=== PATIENT | male | born 1955 | race Caucasian/White ===

== ENCOUNTER 2022-09-05 06:09 | Inpatient (IN) ==
--- NOTE | 2022-09-05 06:36 | Emergency Department Note ---
Impression & Plan Acute non-ST segment elevation myocardial infarction, Chest pain, Hypertensive urgency ED Provider Note Provider: Joseluis Alves MD DATE OF SERVICE: 09/05/2022 CHIEF COMPLAINT: Chest pain/discomfort HISTORY OF PRESENT ILLNESS: Patient is a 67-year-old gentleman presenting here today with report of chest discomfort/indigestion symptoms that awoke him around 4:30 in the morning. States a little bit indigestion after having some pasta and a drinker or two last evening. This morning he woke at 430a with tightness/somewhat pressure sensation in the mid chest radiated to the back. Denies shortness of breath or nausea or other radiation of pain. States he had some indigestion in the past but this was slightly more intense. Did take a Xanax, Pepto-Bismol, Phazyme, and some Advil earlier with maybe some minimal transient improvement of symptoms but given persistence came here for vandana luation. Denies cardiac history personally but reports a significant family history of cardiac disease. Has been belching but denies any diarrhea, nausea, or vomiting. States he intermittently takes omeprazole. Denies recent URI symptoms. PAST MEDICAL HISTORY: As noted above and includes history of testicular and prostate cancer treated MEDICATIONS: Reviewed home medications includes a baby aspirin daily SOCIAL HISTORY: , occasional cigar, social alcohol, lives in the [facility] Family history: Father with early cardiac in his 40s PHYSICAL EXAM: GENERAL: alert and oriented in no acute distress on stretcher Head: normocephalic and atraumatic EYES: No injection, discharge or icterus. NECK: Trachea midline. ENT: Mucous membranes pink and moist. LUNGS: Airway patent. No retractions. Breath sounds clear with good air entry bilaterally. HEART: Regular rate and rhythm. No chest wall tenderness ABDOMEN: Soft and non-tender, without guarding or rebound. SKIN: Acyanotic, warm, dry, without rashes EXTREMITIES: Without swelling, tenderness or deformity NEUROLOGICAL: No focal deficits. No aphasia. No facial droop or slurred speech. Ambulatory. EK bpm normal sinus rhythm. No PVC or PAC. No acute ST segment elevation. QTc 444. CONTINUOUS CARDIAC MONITORING: was ordered and showed a heart rate of 70s-80s bpm in normal sinus rhythm Patient's laboratory studies and imaging reviewed. Differential includes Cardiac ischemia, aortic dissection, pulmonary embolism, pneumothorax, pneumonia, pericarditis, myocarditis, esophageal rupture, GERD, cholecystitis, pancreatitis, musculoskeletal, as well as other pathologies. IMPRESSION/MEDICAL DECISION MAKING: Patient reports some heartburn type symptoms overnight but a tightness in central chest pressure. Did take some medications prior to arrival transient improvement. Symptoms are a bit better at this time. No associated shortness of breath. States blood pressure normally well controlled. Been some years since he had cardiac testing due to a significant family history of cardiac disease. Denies a history of diabetes. Denies significant leg swelling. Does take a baby aspirin daily. EKG obtained here without acute STEMI. Chest x-ray obtained as well but doubt pulmonary pathology and is not hypoxic. Patient is noted to be hypertensive here. We will give Pepcid GI cocktail and full dose aspirin. Blood work ordered including troponin. Chest x-ray by her my review and radiology report shows no evidence of pneumonia, pulmonary edema, pneumothorax. Blood work with minimal anemia. No leukocytosis. No thrombocytopenia or thrombocytosis noted. Again I doubt an infectious etiology to his symptoms today such as sepsis. Severe electrolyte abnormality with creatinine of 1.2. No significant transaminitis of concern or evidence of pancreatitis based on labs. COVID-negative. High-sensitivity troponin returns elevated at 175 after calling the lab. Discussed with the patient and his son at bedside. Discussed further cardiac evaluation here and the patient's currently not experiencing chest discomfort. We will heparinize at this time given the elevation in his earlier symptoms. Advised the patient to alert us to any return of symptoms. Discussed with the hospitalist team for further care here and cardiac evaluation. Home blood pressure medicines were ordered. Repeat troponin noted to be increasing. Dr. Sparks from cardiology has seen the patient here in the emergency department. DIAGNOSIS: NSTEMI, Hypertension DISPOSITION: Hospitalist will evaluate Patient was agreeable with this plan. Critical Care I have personally spent 32 minutes of critical care time in the direct management of this patient. This includes bedside care, interpretation of diagnostic studies, and testing, discussion with consultants, patient, and family members, and other required patient management activities. These 32 minutes is in excess of all separately billable procedures. Past Med/Surg History Social History Smoking Status: Never smoker Second Hand Exposure: No; Hx Alcohol Use: Yes Alcohol type: hard liquor Hx Substance Use: No Preferred Language: Liberian Communication Ability: Effective Loader Malt House Required: No Beliefs That Will Affect Care: None Current Living Situation: Spouse Other Information That Helps Us Care for You: No Feels Safe at Home: Yes Safety Concerns: Feels Safe At This Time Assistive Devices: Glasses Allergies Allergies Allergy/AdvReac Type Severity Reaction Status Date / Time No Known Allergies Allergy Unverified 09/05/22 13:02 Home Meds Home Medications Medication Instructions Recorded Confirmed alprazolam 1 mg tablet (Xanax) 0.5 mg PO BID Anxiety 09/05/22 09/05/22 bupropion HCl 150 mg tablet,12 hr 150 mg PO BID 09/05/22 09/05/22 sustained-release hydrochlorothiazide 25 mg tablet 25 mg PO DAILY 09/05/22 09/05/22 lisinopril 20 mg tablet 20 mg BID 09/05/22 09/05/22 pravastatin 80 mg tablet 80 mg PO HS 09/05/22 09/05/22 verapamil 360 mg 24 hr 360 mg PO DAILY 09/05/22 09/05/22 capsule,extended release Results & Data (ED) Vital Signs Vital Signs - 24 hr 09/05/22 06:12 09/05/22 06:41 09/05/22 08:38 Temperature 36.8 C Temperature Source Temporal Artery Scan Pulse Rate 77 Pulse Rate [Apical] 75 72 Respiratory Rate 18 20 18 Respiratory Effort / Characteristics Non-Labored Spontaneous Non-Labored Spontaneous Respiratory Depth Normal Normal Normal Respiratory Pattern Regular Blood Pressure 177/112 H Blood Pressure [Right Arm] 171/115 H 178/118 H Blood Pressure Mean 133 Blood Pressure Mean [Right Arm] 133 138 Blood Pressure Position Sitting Pulse Oximetry 99 98 98 Oxygen Delivery Method Room Air Room Air Room Air Sepsis Recent Fever Within 48 Hours No Sepsis New/Unexplained Change in Mental Status N/A Sepsis Action Taken by Nursing No Action Required Laboratory Data 09/05/22 06:34 09/05/22 06:34 Lab Results 09/05/22 09/05/22 09/05/22 Range/Units 06:34 06:34 06:34 WBC 5.80 (4.8-10.8) K/ul RBC 4.68 L (4.70-6.10) M/uL Hgb 13.3 L (14.0-18.0) g/dl Hct 40.8 L (42.0-52.0) % MCV 87.2 (80.0-100.0) fL MCH 28.4 (25.0-34.0) pg MCHC 32.6 (32.0-36.0) g/dL RDW Std Deviation 43.0 (36.4-46.3) fL RDW Coeff of Cheryl 13.5 (11.5-14.5) % Plt Count 251 (130-400) K/uL MPV 9.8 (9.4-12.4) fL Immature Gran % (Auto) 0.9 % Neut % (Auto) 60.8 % Lymph % (Auto) 26.0 % [place] % (Auto) 9.8 % Eos % (Auto) 2.2 % Baso % (Auto) 0.3 % Neut # (Auto) 3.52 (1.40-6.50) K/uL Lymph # (Auto) 1.51 (1.2-3.4) K/uL [place] # (Auto) 0.57 (0.11-0.59) K/uL Eos # (Auto) 0.13 (0-0.50) K/uL Baso # (Auto) 0.02 (0-0.2) K/uL Immature Gran # (Auto) 0.05 (0.01-0.20) K/uL Sodium 139 (136-145) mmol/L Potassium 3.6 (3.5-5.1) mmol/L Chloride 103 (98-107) mmol/L Carbon Dioxide 26 (21-32) mmol/L Anion Gap 10 (3-11) BUN 27 H (6-23) mg/dl Creatinine 1.22 (0.6-1.4) mg/dl Est Cr Clr Drug Dosing 66.3 ml/min Est GFR ( Amer) 71.7 ml/min Est GFR (Non-Af Amer) 61.8 ml/min BUN/Creatinine Ratio 22.1 H (10-20) Glucose 117 H (70-99(Fasting)) mg/dl Calcium 9.7 (8.5-10.1) mg/dl Total Bilirubin 0.3 (0.2-1.0) mg/dl AST 26 (13-39) U/L ALT 34 (7-52) U/L Alkaline Phosphatase 105 H (34-104) U/L Troponin I High Sens 175.2 H* Cancelled (0-20) pg/ml Total Protein 7.6 (6.0-8.3) gm/dl Albumin 4.3 (3.4-5.0) gm/dl Globulin 3.3 (2.5-4.0) gm/dl Albumin/Globulin Ratio 1.3 (0.9-2) Lipase 18 (11-82) U/L Vitamin B12 (180-914) pg/ml Folate (>5.38) ng/ml SARS-CoV-2, RNA, NAAT (NEGATIVE) 09/05/22 09/05/22 09/05/22 Range/Units 06:34 06:34 08:39 WBC (4.8-10.8) K/ul RBC (4.70-6.10) M/uL Hgb (14.0-18.0) g/dl Hct (42.0-52.0) % MCV (80.0-100.0) fL MCH (25.0-34.0) pg MCHC (32.0-36.0) g/dL RDW Std Deviation (36.4-46.3) fL RDW Coeff of Cheryl (11.5-14.5) % Plt Count (130-400) K/uL MPV (9.4-12.4) fL Immature Gran % (Auto) % Neut % (Auto) % Lymph % (Auto) % [place] % (Auto) % Eos % (Auto) % Baso % (Auto) % Neut # (Auto) (1.40-6.50) K/uL Lymph # (Auto) (1.2-3.4) K/uL [place] # (Auto) (0.11-0.59) K/uL Eos # (Auto) (0-0.50) K/uL Baso # (Auto) (0-0.2) K/uL Immature Gran # (Auto) (0.01-0.20) K/uL Sodium (136-145) mmol/L Potassium (3.5-5.1) mmol/L Chloride (98-107) mmol/L Carbon Dioxide (21-32) mmol/L Anion Gap (3-11) BUN (6-23) mg/dl Creatinine (0.6-1.4) mg/dl Est Cr Clr Drug Dosing ml/min Est GFR ( Amer) ml/min Est GFR (Non-Af Amer) ml/min BUN/Creatinine Ratio (10-20) Glucose (70-99(Fasting)) mg/dl Calcium (8.5-10.1) mg/dl Total Bilirubin (0.2-1.0) mg/dl AST (13-39) U/L ALT (7-52) U/L Alkaline Phosphatase (34-104) U/L Troponin I High Sens 763.3 H* D (0-20) pg/ml Total Protein (6.0-8.3) gm/dl Albumin (3.4-5.0) gm/dl Globulin (2.5-4.0) gm/dl Albumin/Globulin Ratio (0.9-2) Lipase (11-82) U/L Vitamin B12 388 (180-914) pg/ml Folate 17.58 (>5.38) ng/ml SARS-CoV-2, RNA, NAAT NEGATIVE (NEGATIVE) Administered Medications Acetaminophen (Acetaminophen 325 Mg Tab) 650 mg PO Q4H PRN PRN Reason: Pain or Fever Stop: 10/05/22 09:06 Last Admin: 09/05/22 14:01 Dose: 650 mg Documented By: ARON Heparin Sodium/Dextrose (Heparin Sodium/Dextrose) 25,000 units in 500 mls @ 0 mls/hr IV .Q0M [facility]; Protocol Stop: 10/05/22 08:44 Last Titration: 09/05/22 14:10 Dose: 0 units/hr, 0 mls/hr Documented By: ARON Co-signed By: MONIQUE Admin: 09/05/22 09:11 Dose: 1,000 units/hr, 20 mls/hr Documented By: GUERLINE Co-signed By: FANTA Labetalol HCl (Labetalol Hcl Iv 5 Mg/Ml 20ml) 5 mg IV Q6H PRN PRN Reason: Hypertension Stop: 10/05/22 09:28 Last Admin: 09/05/22 09:55 Dose: 5 mg Documented By: GUERLINE Co-signed By: TOMA Nitroglycerin (Nitroglycerin Sl 0.4 Mg/Tab Tab) 0.4 mg SL UD PRN PRN Reason: Chest Pain Stop: 10/05/22 09:06 Last Admin: 09/05/22 14:03 Dose: 0.4 mg Documented By: ARON Nitroglycerin (Nitroglycerin 2% Ointment 30gm Tube) 1 inch EXT Q6H VIKRAM Stop: 10/05/22 09:59 Last Admin: 09/05/22 09:58 Dose: 1 inch Documented By: GUERLINE Discontinued Medications Al Hydrox/Mg Hydrox/Simethicone (Gi Cocktail Ed Use) 1 dose PO ONE ONE Stop: 09/05/22 06:53 Last Admin: 09/05/22 06:58 Dose: 1 dose Documented By: GUERLINE Aspirin (Aspirin 81 Mg Chew) 324 mg PO NOW STA Stop: 09/05/22 06:53 Last Admin: 09/05/22 06:57 Dose: 324 mg Documented By: GUERLINE Heparin Sodium (Porcine) (Heparin Sod (Porcine) 1000 Unit/Ml) 1 units IV NOW ONE Stop: 09/05/22 08:45 Last Admin: 09/05/22 09:11 Dose: 4,000 units Documented By: GUERLINE Co-signed By: FANTA Heparin Sodium/Dextrose (Heparin Iv Adult Wt-Based Low-Dose With Bolus Protocol) 1 each IV NOW STA; Protocol Stop: 09/05/22 08:30 Last Admin: 09/05/22 09:13 Dose: 1 each Documented By: GUERLINE Hydrochlorothiazide (Hydrochlorothiazide 25 Mg Tab) 25 mg PO NOW STA Stop: 09/05/22 08:43 Last Admin: 09/05/22 09:07 Dose: 25 mg Documented By: GUERLINE Famotidine (Pepcid 20mg Iv Push) 20 mg in 5 mls @ 2.5 mls/min IV NOW STA Stop: 09/05/22 06:53 Last Admin: 09/05/22 06:57 Dose: 2.5 mls/min Documented By: GUERLINE Pantoprazole Sodium 40 mg/ (Syringe) 10 mls @ 5 mls/min IV NOW ONE Stop: 09/05/22 09:46 Last Admin: 09/05/22 14:03 Dose: 5 mls/min Documented By: ARON Labetalol HCl (Labetalol Hcl Iv 5 Mg/Ml 20ml) 5 mg IV NOW STA Stop: 09/05/22 09:30 Last Admin: 09/05/22 09:39 Dose: Not Given Documented By: GUERLINE Lisinopril (Lisinopril 20 Mg Tab) 20 mg PO NOW STA Stop: 09/05/22 08:43 Last Admin: 09/05/22 09:07 Dose: 20 mg Documented By: [facility] Imaging Data Radiologist's Impression: Chest X-Ray 09/05/22 06:12 XR chest 1V portable CLINICAL HISTORY: Chest pain, nonspecific COMPARISON STUDY: No previous studies for comparison. FINDINGS: Lung volumes are normal. There is no consolidation to suggest pneumonia. Minimal linear bibasilar densities favor atelectasis or scarring. There is no pneumothorax or pleural effusion. Mild cardiomegaly. Mediastinal contours are normal. There is no evidence for pulmonary edema. Osteoarthritis of the bilateral glenohumeral joints is incidentally noted. IMPRESSION: No acute cardiopulmonary findings. ACT 112: Negative or not required by law. Electronically signed by: Leon Elliott M.D. 09/05/2022 7:43 AM Discharge Plan Visit Data Chief Complaint: Chest Pain Stated Complaint: CHEST PAIN ED Provider: Joseluis Alves Discharge Problem: Acute non-ST segment elevation myocardial infarction, Chest pain, Hypertensive urgency Patient Disposition: Admitted As Inpatient Discharge Instructions Interventions: ED Discharge Assessment Last Done: 09/05/22 13:00
[2022-09-05] MEDS ORDERED: GI COCKTAIL ED USE PO ONE (06:52)
[2022-09-05] MEDS ORDERED: ASPIRIN 81 MG CHEW PO STA (06:52)
[2022-09-05] MEDS ORDERED: FAMOTIDINE 20MG IV PUSH 20 MG/5 ML SYR IV STA (06:52)
[2022-09-05 07:25] LABS: Basophils # (auto) 0.02 K/uL (0-0.2); Basophils % (auto) 0.3 %; Eosinophils # (auto) 0.13 K/uL (0-0.50); Eosinophils % (auto) 2.2 %; Hematocrit (blood only) 40.8 % (42.0-52.0); Hemoglobin 13.3 g/dl (14.0-18.0); Immature Granulocytes # (auto) 0.05 K/uL (0.01-0.20); Immature Granulocytes % (auto) 0.9 %; Lymphocytes # (auto) 1.51 K/uL (1.2-3.4); Mean Corpuscular Hemoglobin 28.4 pg (25.0-34.0); Mean Corpuscular Hgb Conc 32.6 g/dL (32.0-36.0); Mean Corpuscular Volume 87.2 fL (80.0-100.0); Mean Platelet Volume 9.8 fL (9.4-12.4); Monocytes # (auto) 0.57 K/uL (0.11-0.59); Monocytes % (auto) 9.8 %; Neutrophils # (auto) 3.52 K/uL (1.40-6.50); Neutrophils % (auto) 60.8 %; Platelet Count 251 K/uL (130-400); RDW Coefficient of Variation 13.5 % (11.5-14.5); Red Blood Count 4.68 M/uL (4.70-6.10)
--- NOTE | 2022-09-05 07:44 | XRay Report ---
XR chest 1V portable CLINICAL HISTORY: Chest pain, nonspecific COMPARISON STUDY: No previous studies for comparison. FINDINGS: Lung volumes are normal. There is no consolidation to suggest pneumonia. Minimal linear bib asilar densities favor atelectasis or scarring. There is no pneumothorax or pleural effusion. Mild ca rdiomegaly. Mediastinal contours are normal. There is no evidence for pulmonary edema. Osteoarthritis of the bilateral glenohumeral joints is incidentally noted. IMPRESSION: No acute cardiopulmonary findings. ACT 112: Negative or not required by law. Electronically signed by: Leon Elliott M.D. 09/05/2022 7:43 AM
[2022-09-05 08:04] LABS: Albumin Globulin Ratio 1.3 (0.9-2); Albumin Level 4.3 gm/dl (3.4-5.0); BUN Creatinine Ratio 22.1 (10-20); Bilirubin,Total 0.3 mg/dl (0.2-1.0); Calcium 9.7 mg/dl (8.5-10.1); Creatinine Clr Calc Pharmacy 66.3 ml/min; Est GFR (African American) 71.7 ml/min; Est GFR (Non-African American) 61.8 ml/min; Globulin 3.3 gm/dl (2.5-4.0); Potassium 3.6 mmol/L (3.5-5.1); Total Protein 7.6 gm/dl (6.0-8.3)
[2022-09-05 08:23] LABS: Troponin I High Sensitivity 175.2 pg/ml (0-20)
[2022-09-05] MEDS ORDERED: Heparin IV Adult Wt-Based Low-Dose WITH Bolus Protocol IV STA (08:29)
[2022-09-05] MEDS ORDERED: hydroCHLOROthiazide 25 MG TAB PO STA (08:42)
[2022-09-05] MEDS ORDERED: lisinopril 20 MG TAB PO STA (08:42)
[2022-09-05] MEDS ORDERED: HEPARIN SOD (PORCINE) 1000 UNIT/ML IV ONE (08:44)
[2022-09-05] MEDS ORDERED: HEPARIN SODIUM/DEXTROSE 25,000 UNITS/500 ML BAG IV SCH (08:45)
[2022-09-05] MEDS ORDERED: ONDANSETRON INJ 2 MG/ML 2 ML VIAL IV PRN (09:07)
[2022-09-05] MEDS ORDERED: MAGNESIUM HYDROXIDE SUSP 30 ML UDC PO PRN (09:07)
[2022-09-05] MEDS ORDERED: POLYETHYLENE (MIRALAX) 17 GM PACK PO PRN (09:07)
[2022-09-05] MEDS ORDERED: ALUMINUM/MAGNESIUM SUSP 30 ML UDC PO PRN (09:07)
[2022-09-05] MEDS ORDERED: ACETAMINOPHEN 325 MG TAB PO PRN (09:07)
[2022-09-05] MEDS ORDERED: CALCIUM CARBONATE 500 MG CHEWABLE TAB PO PRN (09:26)
--- NOTE | 2022-09-05 09:26 | History & Physical Report ---
Date of Service September 05, 2022 Assessment & Plan (1) Chest pain: Plan Chest pain rule out ACS, ? NSTEMI Possible GERD Patient comes in with working up from sleep at 4:30 AM with " squeezing chest pain" which he confuses with his indigestion but reports it is not similar to his past indigestion history. Patient's father from heart disease at age 45. Admitting troponin elevated at 175.2, trend troponin, admitting CXR and EKG with no acute findings. Other labs fairly wnl. Trend troponin, repeat follow-up EKG, EKG with chest pain pain, telemetry monitoring, echo, cardiology consult Patient received GI cocktail, famotidine, aspirin loading dose, heparin drip in the ED. Continue with heparin drip. Protonix IV twice daily, Tums as needed for indigestion. Currently reports chest pain 2/10 at bedside exam. will reach out to cardio, plan for heart alert w/ increasing chest pain or changes in repeat ekg. 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 Denies use of tobacco or other recreational drugs. Will institute CIWA protocol. Other chronic medical conditions: HTN, HLD, anxiety--> resume home meds as able [Home meds HCTZ 12.5 every morning, lisinopril 20 mg twice daily, verapamil 360 mg every morning, bupropion 150 mg twice daily, Xanax 1 mg twice daily as needed for anxiety, pravastatin 40 mg at bedtime per patient] DVT prophylaxis: Heparin drip History of Present Illness Chief Complaint: Chest pain Primary Care Provider: Rodrigo Bravo DO 67-year-old male with PMH of HTN, HLD, anxiety, alcohol use disorder, history of testicular and prostate cancer presented to the ED 09/05 with complaint of waking up from sleep at 4:30 AM with " squeezing chest pain", kind of like indig estion but not similar to his indigestion history per him [patient has on and off indigestion per him], radiating to back, 8/10 in intensity, no associated diaphoresis or headache or dizziness or palpitation, minimally relieved with anti-gas meds and 2 baby aspirin taken at home but came right back in. In the ED patient got full dose aspirin and GI cocktail and famotidine with relief of chest pressure currently rated at 2/10. Patient denies any recent fever/flulike illness/cough/sore throat/belly pain/acute changes in his bowel or bladder habits. Patient reports having normal appetite. Reports lot of belching today. Patient denies smoking or using any recreational drugs. 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 Patient denies any history of stenting anywhere in the body for himself. Denies any CT or blood clot in self. Patient reports father expiring from heart disease at age 45, brother with history of testicular and prostate cancer, 1 sister expiring from NHL, another sister with NHL. Medications were reviewed with the patient, patient takes HCTZ 12.5 mg every morning, lisinopril 20 mg twice daily, verapamil 360 mg every morning, bupropion 150 mg twice daily, Xanax 1 mg twice daily as needed for anxiety, pravastatin 40 mg at bedtime. Plan of care discussed with the patient who voiced understanding. Past Med/Surg History Social History Smoking Status: Never smoker Preferred Language: Indonesian Feels Safe at Home: Yes Review of Systems Review of Systems: Negative otherwise mentioned in HPI. Physical Exam Physical Exam: GENERAL: Alert and oriented x3. NAD, on RA. HEENT: No pallor, no icterus. Pupils equal, round and reactive to light. Oral mucosa moist. NECK: No JVD, no neck masses. HEART: S1 and S2 heard. Regular rate and rhythm. No murmur, no gallop. RESPIRATORY SYSTEM: Normal AP diameter. No accessory muscle use. No wheezing, no crackles. ABDOMEN: Soft, bowel sounds present, nontender, no distention. CENTRAL NERVOUS SYSTEM: No facial droop. Speech is clear. Obeys simple commands. Moves extremities. EXTREMITIES: No edema, no erythema seen. Results & Data Results & Data ([facility]) Vital Signs (Past 12 Hours) Vital Signs Temp Pulse Pulse Resp BP BP Pulse Ox 09/05/22 08:38 72 18 178/118 H 98 09/05/22 06:41 75 20 171/115 H 98 09/05/22 06:12 36.8 C 77 18 177/112 H 99 O2 Del Method 09/05/22 08:38 Room Air 09/05/22 06:41 Room Air 09/05/22 06:12 Room Air
[2022-09-05] MEDS ORDERED: LABETALOL HCL IV 5 MG/ML 20ML IV PRN (09:29)
[2022-09-05] MEDS ORDERED: LABETALOL HCL IV 5 MG/ML 20ML IV STA (09:29)
[2022-09-05] MEDS ORDERED: Ativan PO Alcohol Withdrawal--Active Protocol PO PRN (09:36)
[2022-09-05] MEDS ORDERED: LORazepam 1 MG TAB PO PRN ×2 (09:36)
[2022-09-05] MEDS ORDERED: PANTOprazole 40 MG in SYRINGE 0 ML IV ONE (09:45)
[2022-09-05] MEDS: NITROGLYCERIN 2% OINTMENT 30GM TUBE EXT SCH ×2 (09:58→17:13)
[2022-09-05] MEDS ORDERED: METOPROLOL TARTRATE 25 MG TAB PO ONE (11:30)
--- NOTE | 2022-09-05 11:41 | Cardiology Consultation ---
Date of Consultation September 05, 2022 History of Present Illness Reason for Consultation: Non-ST segment elevation myocardial infarction, hypertensive urgency Requesting Physician: Dr. James Attending Physician: Dr. James History of Present Illness Patient is a 67-year-old male with ongoing issues which include 1. Longstanding hypertension greater than 20 years duration with labile blood pressure 2. Familial history of cardiac disease Patient presented to the emergency room this morning noting visiting the area from [facility]. Last evening felt chest pressure sensation while eating. This morning awakened from sleep early approximately 4 AM with symptoms of chest pressure rating to the back and shoulders. Symptoms persisted despite trial use of Patient History Social History Smoking Status: Never smoker Preferred Language: Turkmen Feels Safe at Home: Yes Results & Data ([facility]) Vital Signs (Past 12 Hours) Vital Signs Temp Pulse Pulse Resp BP BP Pulse Ox 09/05/22 10:40 62 18 147/106 H 99 09/05/22 10:01 160/106 H 09/05/22 09:43 75 16 172/115 H 98 09/05/22 08:38 72 18 178/118 H 98 09/05/22 06:41 75 20 171/115 H 98 09/05/22 06:12 36.8 C 77 18 177/112 H 99 O2 Del Method 09/05/22 10:40 Room Air 09/05/22 10:01 09/05/22 09:43 Room Air 09/05/22 08:38 Room Air 09/05/22 06:41 Room Air 09/05/22 06:12 Room Air
--- NOTE | 2022-09-05 11:48 | Cardiology Consultation ---
Date of Consultation September 05, 2022 Assessment & Plan (1) Acute non-ST segment elevation myocardial infarction: (2) Hypertensive urgency: Plan Patient is a 67-year-old male with longstanding hypertension but no prior history of structural heart disease who presents with symptoms concerning for angina versus hypertensive urgency. Troponins elevated no acute ST elevation on EKG. Symptoms currently resolved Plan: IV heparin as initiate Treat hypertension. Topical nitrates with 1 inch Every 6 added. Single dose of IV beta labetalol given we will begin oral metoprolol over verapamil given troponin elevated Echocardiogram to be reviewed We will plan on diagnostic coronary angiography on Wednesday unless patient develops unstable symptoms Serial EKGs and enzymes Follow for alcohol withdrawal given hospital induced abstinence History of Present Illness Reason for Consultation: Non-ST segment elevation myocardial infarction, hypertensive urgency Requesting Physician: Dr. James Attending Physician: Dr James History of Present Illness Patient is a 67-year-old male with ongoing issues which include 1. Longstanding hypertension greater than 20 years duration with labile blood pressure 2. Familial history of cardiac disease 3. Chronic gastroesophageal reflux 4. Patient presented to the emergency room this morning noting visiting the area from [facility]. Last evening felt chest pressure sensation while eating. This morning awakened from sleep early approximately 4 AM with symptoms of chest pressure rating to the back and shoulders. Symptoms persisted despite trial use of anxiolytic and GI med. He sought ER evaluation where initial evaluation patient was found to be markedly hypertensive, laboratory studies notable for elevated troponin. Patient currently anticoagulated with IV heparin with symptoms resolved Patient denies prior history of myocardial infarction, angina, congestive heart failure, rheumatic fever, scarlet fever, TIA or stroke No edema or evidence of fluid retention. Patient notes treated approximately 1-1/2 years ago for significant cellulitis, no other recent illnesses Does note chronic alcohol use and elevated blood pressures observed frequently at home No fevers chills or unexplained infections. No bleeding difficulties. Appetite and weight are generally stable. 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 daily, lisinopril 20 minutes p.o. today, hydrochlorothiazide 25 mg p.o. daily for hypertension, uses alprazolam for anxiolytic Allergies Allergy/AdvReac Type Severity Reaction Status Date / Time No Known Allergies Allergy Unverified 09/05/22 13:02 Home Medications Medication Instructions Recorded Confirmed Type alprazolam 1 mg tablet (Xanax) 0.5 mg PO BID Anxiety 09/05/22 09/05/22 History bupropion HCl 150 mg tablet,12 hr 150 mg PO BID 09/05/22 09/05/22 History sustained-release hydrochlorothiazide 25 mg tablet 25 mg PO DAILY 09/05/22 09/05/22 History lisinopril 20 mg tablet 20 mg BID 09/05/22 09/05/22 History pravastatin 80 mg tablet 80 mg PO HS 09/05/22 09/05/22 History verapamil 360 mg 24 hr 360 mg PO DAILY 09/05/22 09/05/22 History capsule,extended release Patient History Social History Smoking Status: Never smoker Second Hand Exposure: No; Hx Alcohol Use: Yes Alcohol type: hard liquor Hx Substance Use: No Preferred Language: Palauan Communication Ability: Effective Accounting Support Specialist Required: No Beliefs That Will Affect Care: None Current Living Situation: Spouse Other Information That Helps Us Care for You: No Feels Safe at Home: Yes Safety Concerns: Feels Safe At This Time Assistive Devices: Glasses Review of Systems Review of Systems: All systems reviewed & are unremarkable except as noted in HPI & below Physical Exam Constitutional: + obese; no acute distress Eyes: PERRL, conjunctivae normal, anicteric sclerae ENMT: external ear and nose normal, oropharynx normal Neck: trachea midline, no thyromegaly Respiratory: normal respiratory effort, lungs clear to auscultation Cardiovascular: RRR, no murmur, no edema Heart Sounds: normal S1 and normal S2 Palpation: normal PMI Vessels: femoral pulses present and radial pulses present; no JVD and no cranial bruit Extremities: no edema Chest (Breasts): Chest: normal inspection of chest Gastrointestinal (Abdomen): normal bowel sounds, soft, nontender, no hepatosplenomegaly Musculoskeletal: no cyanosis or clubbing, extremities motor strength 5/5 Results & Data ([facility]) Vital Signs (Past 12 Hours) Vital Signs Temp Pulse Pulse Resp BP BP Pulse Ox 09/05/22 10:40 62 18 147/106 H 99 09/05/22 10:01 160/106 H 09/05/22 09:43 75 16 172/115 H 98 09/05/22 08:38 72 18 178/118 H 98 09/05/22 06:41 75 20 171/115 H 98 09/05/22 06:12 36.8 C 77 18 177/112 H 99 O2 Del Method 09/05/22 10:40 Room Air 09/05/22 10:01 09/05/22 09:43 Room Air 09/05/22 08:38 Room Air 09/05/22 06:41 Room Air 09/05/22 06:12 Room Air Laboratory Results Laboratory Results - last 24 hr 09/05/22 09/05/22 09/05/22 06:34 06:34 06:34 WBC 5.80 RBC 4.68 L Hgb 13.3 L Hct 40.8 L MCV 87.2 MCH 28.4 MCHC 32.6 RDW Std Deviation 43.0 RDW Coeff of Cheryl 13.5 Plt Count 251 MPV 9.8 Immature Gran % (Auto) 0.9 Neut % (Auto) 60.8 Lymph % (Auto) 26.0 Gallia % (Auto) 9.8 Eos % (Auto) 2.2 Baso % (Auto) 0.3 Neut # (Auto) 3.52 Lymph # (Auto) 1.51 Gallia # (Auto) 0.57 Eos # (Auto) 0.13 Baso # (Auto) 0.02 Immature Gran # (Auto) 0.05 Sodium 139 Potassium 3.6 Chloride 103 Carbon Dioxide 26 Anion Gap 10 BUN 27 H Creatinine 1.22 Est Cr Clr Drug Dosing 66.3 Est GFR ( Amer) 71.7 Est GFR (Non-Af Amer) 61.8 BUN/Creatinine Ratio 22.1 H Glucose 117 H Calcium 9.7 Total Bilirubin 0.3 AST 26 ALT 34 Alkaline Phosphatase 105 H Troponin I High Sens 175.2 H* Cancelled Total Protein 7.6 Albumin 4.3 Globulin 3.3 Albumin/Globulin Ratio 1.3 Lipase 18 Vitamin B12 Folate SARS-CoV-2, RNA, NAAT 09/05/22 09/05/22 09/05/22 06:34 06:34 08:39 WBC RBC Hgb Hct MCV MCH MCHC RDW Std Deviation RDW Coeff of Cheryl Plt Count MPV Immature Gran % (Auto) Neut % (Auto) Lymph % (Auto) Gallia % (Auto) Eos % (Auto) Baso % (Auto) Neut # (Auto) Lymph # (Auto) Gallia # (Auto) Eos # (Auto) Baso # (Auto) Immature Gran # (Auto) Sodium Potassium Chloride Carbon Dioxide Anion Gap BUN Creatinine Est Cr Clr Drug Dosing Est GFR ( Amer) Est GFR (Non-Af Amer) BUN/Creatinine Ratio Glucose Calcium Total Bilirubin AST ALT Alkaline Phosphatase Troponin I High Sens 763.3 H* D Total Protein Albumin Globulin Albumin/Globulin Ratio Lipase Vitamin B12 Pending Folate Pending SARS-CoV-2, RNA, NAAT NEGATIVE ECG Additional Comments: 09/05/2022 Normal sinus rhythm at [address] flattening leads V3 through V6
[2022-09-05] MEDS ORDERED: INFLUENZA VACCINE HIGH DOSE PF 65+ 0.7 ML SYR IM ONE (12:58)
[2022-09-05] MEDS: NITROGLYCERIN SL 0.4 MG/TAB TAB SL PRN ×2 (14:03→14:27)
[2022-09-05] MEDS ORDERED: D5W AND 1/2NSS 1,000 ML IV SCH (14:15)
[2022-09-05] MEDS ORDERED: amLODIPine BESYLATE 5 MG TAB PO ONE ×2 (14:29→20:00)
[2022-09-05] MEDS ORDERED: HEPARIN (PORCINE) 1000 UNIT/ML 10 ML (CATH LAB USE ONLY) ONE (14:55)
[2022-09-05] MEDS ORDERED: MIDAZOLAM HCL 1 MG/ML 2ML VIAL ONE (14:55)
[2022-09-05] MEDS ORDERED: niCARdipine HCL INJ 2.5 MG/ML 10 ML AMP ONE (14:55)
[2022-09-05] MEDS ORDERED: fentaNYL citrate 100 MCG/2 ML VIAL ONE (14:55)
[2022-09-05] MEDS ORDERED: NITROGLYCERIN/D5W 100MCG/ML 20ML SYR ONE (14:56)
--- NOTE | 2022-09-05 15:07 | Communication Note ---
Date of Service: September 05, 2022 Patient redeveloped chest pain with chest pressure radiating to the middle of his back ease but not relieved with sublingual nitroglycerin x2 Blood pressures equal in both arms Patient on amlodipine 5 mg p.o. given for additional blood pressure control Without acute changes no pain still remains present We will trigger heart alert and take to Relay Adjuster urgently
[2022-09-05] MEDS ORDERED: TICAGRELOR 90 MG TAB ONE (15:44)
[2022-09-05 16:23] LABS: Partial Thromboplastin Ratio 1.2; Partial Thromboplastin Time 32.2 Seconds (21.0-31.0)
--- NOTE | 2022-09-05 16:50 | Communication Note ---
Date of Service: September 05, 2022 Cardiac catheterization demonstrated multivessel coronary disease with occluded large diagonal branch. Patient received stent to the diagonal branch. He has residual disease within a large diagonal branch and chronic subtotal occlusion of the right coronary artery with collateral filling via [id number] flow We will change metoprolol to tartrate to metoprolol succinate 50 twice daily Continue prehospital lisinopril 20 g twice daily Add amlodipine 5 mg nightly for additional hypertension control We will review statin use with patient and change to high potency therapy unless prior intolerance
--- NOTE | 2022-09-05 17:01 | Pre Anesthesia Assessment ---
Date of Service September 05, 2022 Pre Sedation Assessment Vital Signs Temp Pulse Pulse Resp BP BP Pulse Ox 09/05/22 12:00 75 09/05/22 14:14 158/85 H 09/05/22 12:41 36.5 C 67 18 148/91 H 97 09/05/22 10:40 62 18 147/106 H 99 09/05/22 10:01 160/106 H 09/05/22 09:43 75 16 172/115 H 98 09/05/22 08:38 72 18 178/118 H 98 09/05/22 06:41 75 20 171/115 H 98 09/05/22 06:12 36.8 C 77 18 177/112 H 99 O2 Del Method 09/05/22 12:00 09/05/22 14:14 09/05/22 12:41 09/05/22 10:40 Room Air 09/05/22 10:01 09/05/22 09:43 Room Air 09/05/22 08:38 Room Air 09/05/22 06:41 Room Air 09/05/22 06:12 Room Air Cardiovascular RRR, no murmur, no edema Respiratory normal respiratory effort, lungs clear to auscultation Pre-Sedation Airway Assessment Smoking Status: Never smoker Mallampati Class: II ASA: ASA3 Notes The planned sedation has been discussed with the patient. Informed Consent was obtained. I have identified the patient, determined the appropriateness of sedation and have assessed the patient immediately prior to the procedure. All medicine(s) and interventions are by my order.
--- NOTE | 2022-09-05 17:02 | Post Anesthesia Assessment ---
Date of Service September 05, 2022 Post Sedation Assessment Vital Signs Temp Pulse Pulse Resp BP BP Pulse Ox 09/05/22 12:00 75 09/05/22 14:14 158/85 H 09/05/22 12:41 36.5 C 67 18 148/91 H 97 09/05/22 10:40 62 18 147/106 H 99 09/05/22 10:01 160/106 H 09/05/22 09:43 75 16 172/115 H 98 09/05/22 08:38 72 18 178/118 H 98 09/05/22 06:41 75 20 171/115 H 98 09/05/22 06:12 36.8 C 77 18 177/112 H 99 O2 Del Method 09/05/22 12:00 09/05/22 14:14 09/05/22 12:41 09/05/22 10:40 Room Air 09/05/22 10:01 09/05/22 09:43 Room Air 09/05/22 08:38 Room Air 09/05/22 06:41 Room Air 09/05/22 06:12 Room Air Recovery Score Activity: Moves 4 extremities Respiration: Deep Breath/Cough Circulation: +/-20% PreAnes Value Consciousness: Fully Awake Oxygen Saturation: > 92% On Room Air Discharge Sedation Level of Care: Phase I Post Sedation Plan On clinical assessment, the patient appears to have tolerated the sedation without complications. Patient is recovering as anticipated. Patient will continue to be monitored by nursing and may be discharged when sedation discharge criteria are met per below protocol. Upon Completions of procedure up to 15 minutes continue every 5 minute vital signs and the P.A.R. score; then discharge to a Phase I or Fast Track to Phase II per the following guidelines: * Discharge Patient to appropriate Phase II area if PAR is 8 or greater or return to pre- procedure baseline. The post - procedure orders will be as directed. * If PAR score is less than 8 or not return to pre-procedure baseline then patient will follow Phase I monitoring till PAR is reached for Phase II. The Phase I may be done in procedure room or may call to secure a Phase I area. * If naloxone or flumazenil are used for reversal, hold in Phase I for continued monitoring from when last reversal dose was given for a minimum of 60 minutes or longer pending the nurse and/or physician discretion of patient condition before discharge to Phase II. Please call the Sedation Physician to re-evaluate and complete post-note for discharge to Phase II area. Do NOT discharge from procedure sedation or Phase 1 until post- sedation evaluation note is complete by procedure /sedation MD Sedation Discharge Instructions to be given to the patient at discharge to home. [facility] Procedure Codes (Charges) Indication for Procedure Indication for procedure: NSTEMI Sedation/Anesthesia Procedure 1: Sedation/Anesthesia: 44636 Mod Sedation by the same physician;Init15 Min Child Age 5 & Up (intial 15 min) Total Sedation Time (minutes): 21 Procedure 2: Sedation/Anesthesia: 22567 Mod Sedation by the same physician; Ea [id number] Minutes (additional 6 min) Total Sedation Time (minutes): 21
--- NOTE | 2022-09-05 17:26 | Cardiac Catheterization ---
[facility] Data: Loading Machine Operator Cardiac Status Clinical evaluation leading to the procedure CAD Presenation: Non STEMI Anginal Classification: CCS IV Heart Failure: No Cardiogenic Shock within 24 Hours: No Cardiac Arrest within 24 Hours: No Imaging Studies Past 6 Months: No Stress Studies Past 6 Months: No Coronary Anatomy Dominant: Right Left Main (% Stenosis): Normal LAD (% Stenosis): Distal (50%, apical 99%) D1 (% Stenosis): Proximal (100%) D2 (% Stenosis): Proximal (80%) Circumflex (% Stenosis): Proximal (50 to 60%) OM1 (% Stenosis): Normal OM2 (% Stenosis): Proximal (70-80%) RCA (% Stenosis): Proximal (100% (chronic)) R PDA (% Stenosis): Normal (Mild) R PL1 (% Stenosis): Normal (Mild) Diagnostic Physicians Name: Paul Magaña MD, PhD Closure Device Percutaneous Entry Location: Radial Closure Device: Radial Band Recommendations: Medical Therapy and/or Counseling and PCI without planned CABG PCI Indication: PCI for high risk Non-ESPERANZA Lesion Segment Name: Proximal first diagonal Culprit Artery: Yes Stenosis Prior to Rx (%): 99 to 100% Chronic Total Occlusion: No Pre-Procedure GERARDO Flow: 1 Previously Treated Lesion: No Lesion Complexity: Non-High/Non-C Lesion Length (mm): 12 Thrombus Present: Yes Bifurcation Lesion: No Guidewire Across Lesion: Yes Cardiac Cath Procedure Full Procedure Date September 05, 2022 Pre-Procedure Diagnosis Pre-Procedure Diagnosis: Non STEMI AUC Score AUC Score: 07 Post-Procedure Diagnosis Post-Procedure Diagnosis: Severe CAD Procedure(s) Performed Procedure(s) Performed: Coronary Angiography and Drug Eluting Stent Student Support Services Director Paul Magaña MD, PhD Estimated Blood Loss Estimated Blood Loss: 5 ml Medication(s) Medication(s): Fentanyl, Heparin, Lidocaine 1%, Nicardipine, Nitroglycerin and Versed Summary of Findings Brief description: Patient was brought to the cardiac catheterization suite where he was shaved and prepped in a sterile fashion. Sedated using IV Versed and fentanyl. Soft tissues of the right wrist were anesthetized using 2 mL of 1% Xylocaine. The right radial artery was accessed with modified Seldinger technique and a 6 Marshallese radial artery glide sheath was placed. Patient was provided anticoagulation with IV heparin and antispasmodics including nicardipine and nitroglycerin. Left coronary angiography in orthogonal views with a 5 Marshallese Reliance 4 diagnostic catheter. Right coronary angiography in orthogonal views with a 5 Marshallese Reliance 4 diagnostic catheter. Diagnostic catheters were removed. We next proceeded with PCI. ACT was checked and additional heparin was provided as needed to maintain therapeutic ACT. 6 Marshallese EBU 3.0 guide catheter used to engage the left main. BMW reversal guidewire advanced through the guide catheter and positioned d istally beyond the lesion in the diagonal. Lesion was predilated using a 2.0 x 12 mm mini trek balloon up to 14 caesar. PCI with implantation of a 2.5 x 15 mm Gennaro drug-eluting stent up to 17 caesar. Stent balloon removed and adjunct faculty mathematics department angiography performed. Guidewire removed. Guide catheter removed following final angiographic evaluation. Radial artery sheath was removed. Hemostasis was obtained using the TR band. Patient was provided Brilinta 180 mg p.o. x1. Patient was then returned to his room in stable condition. This ended the case. Coronary angiography findings: LMT: Large-caliber vessel bifurcating into LAD and circumflex. Mild luminal irregularities. LAD: Large caliber and transapical vessel. Proximal segment with mild luminal irregularities. First diagonal is large in caliber. Proximal segment is 99% occluded and there is GERARDO I flow distally. There is staining suggestive of thrombus. Mid LAD has mild luminal irregularities. There is a medium caliber long and branching second diagonal with proximal 80% stenosis. Probably too small for PCI. The early distal LAD has an eccentric lesion of 50%. Then the LAD is without significant disease until it reaches the apex where there is a focal 80 to 90% stenosis. LCx: Medium caliber vessel traveling in the AV groove. Proximal segment with mild 50 to 60% stenosis. First major OM is medium caliber and branching. Has proximal 70 to 80% stenosis. The mid AV groove circumflex has no disease. It provides an atrial branch, too small posterior lateral branches and left to right collaterals to the right PDA. RCA: Large caliber and dominant vessel. Has a chronic total occlusion just after the ostium. There are some right to right collaterals and an RV marginal branch. The distal RCA has up to 99% stenosis and is diffusely diseased. The vessel bifurcates into the PDA and posterolateral branches. These fill better via left to right collateralization than they do via the right to right collateralization. PCI to diagonal: 0% residual post PCI No evidence of dissection or perforation post PCI GERARDO-3 flow post PCI The mid and distal vessel have mild scattered plaques and the distal vessel has several small branches. Summary: 1. Non-ST elevation CT secondary to occlusion of a large caliber branching first diagonal. 2. Successful PCI to the first diagonal with implantation of a drug-eluting stent. 3. 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 In addition there is moderate to severe residual disease at the apex, second diagonal, and mild disease elsewhere. 4. Patient will be on dual antiplatelet therapy with aspirin and Brilinta for 1 to 2 years. 5. Guideline directed medical therapy for secondary prevention of coronary disease to include; low-dose aspirin, high intensity statin therapy, beta- lindsey, plus or minus WEN inhibitor/ARB as tolerated. Exact regimen to be determined by his primary magnetic doctor. Hemodynamics Rest Ao:: 146/98 mmHg Final Ao: 154/90 mmHg LV: Not performed Recommendations Recommendations: Medical Therapy and/or Counseling and PCI without planned CABG Radiation Exposure (mGy) 1459 mGy Contrast (mls) 120 Anesthesia 2 mg IV Versed, 25 mcg IV fentanyl Procedural Complication(s) None Disposition Recovery Room\PACU I attest to the content of the Intraoperative Record and any orders documented therein. Any exceptions are noted below. [facility] Card Cath Procedure Codes Cardiac Catheterization Procedure 1: Cardiovascular Cath Procedures: 85321 Coronaries Moderate Sedation Procedure 1: Sedation/Anesthesia: 18348 Mod Sedation by the same physician;Init15 Min Child Age 5 & Up (Initial 15 minutes (total 21 minutes)) Procedure 2: Sedation/Anesthesia: 33149 Mod Sedation by the same physician; Ea [id number] Minutes (Additional 6 minutes (total 21 minutes)) Stenting Procedure 1: Cardiovascular Stent Procedures: 19852 Perc transluminal revascularization of acute sub/total occl, aMI (LAD diagonal) PG Care Time/CCT Total # of Minutes Spent Total Time Spent with Patient: Total time spent is greater than 50% in coordination of care (as documented) at patient's floor/unit and/or counseling patient:
--- NOTE | 2022-09-05 17:35 | CT Scan Report ---
HEAD CT NONCONTRAST CT DOSE: 602.66 mGycm HISTORY: headache, on blood thinner. TECHNIQUE: Multiaxial CT images of the head were performed without the use of intravenous contrast. A utomated exposure control was utilized for this study. A dose lowering technique was utilized adheri ng to the principles of ALARA. Comparison: None. Findings: Small retention cyst within the right maxillary sinus. The mastoid air cells are clear. The calvarium and skull base are intact. There is contrast within the brain from the recent catheterizat ion. This results in suboptimal evaluation for intracranial hemorrhage. However, there is no definite mass, hematoma, midline shift, acute hemorrhage identified Impression: Suboptimal evaluation of the brain due to the residual contrast within the recent catheterization. Ho wever, no definite acute intracranial abnormality. ACT 112: Negative or not required by law. Electronically signed by: Guanaco Mccoy M.D. 09/05/2022 5:32 PM
[2022-09-05] MEDS ORDERED: METOPROLOL TARTRATE 25 MG TAB PO SCH (18:00)
[2022-09-05] MEDS: PANTOprazole 40 MG in SYRINGE 0 ML IV SCH (20:43)
[2022-09-05] MEDS: lisinopril 20 MG TAB PO SCH (20:43)
[2022-09-05] MEDS: METOPROLOL SUCC 50MG EXT REL TAB PO SCH (20:44)
[2022-09-05] MEDS ORDERED: PRAVASTATIN SOD 40 MG TAB PO SCH (21:00)
[2022-09-05] MEDS: ALPRAZolam 0.5 MG TABLET PO PRN (22:05)
[2022-09-05] MEDS: buPROPion SR 150 MG TABCR PO SCH (22:13)
[2022-09-06] MEDS ORDERED: TICAGRELOR 90 MG TAB PO SCH (06:00)
[2022-09-06 07:09] LABS: Hematocrit (blood only) 39.7 % (42.0-52.0); Hemoglobin 13.3 g/dl (14.0-18.0); Mean Corpuscular Hemoglobin 28.7 pg (25.0-34.0); Mean Corpuscular Hgb Conc 33.5 g/dL (32.0-36.0); Mean Corpuscular Volume 85.7 fL (80.0-100.0); Mean Platelet Volume 9.8 fL (9.4-12.4); Platelet Count 260 K/uL (130-400); RDW Coefficient of Variation 13.8 % (11.5-14.5); RDW Standard Deviation 42.8 fL (36.4-46.3); Red Blood Count 4.63 M/uL (4.70-6.10); White Blood Count 7.77 K/ul (4.8-10.8)
[2022-09-06 07:31] LABS: BUN Creatinine Ratio 18.7 (10-20); Calcium 9.7 mg/dl (8.5-10.1); Creatinine Clr Calc Pharmacy 65.7 ml/min; Est GFR (Non-African American) 61.2 ml/min; Magnesium 1.7 mg/dl (1.7-2.4); Phosphorus 2.3 mg/dl (2.5-4.9); Potassium 3.8 mmol/L (3.5-5.1)
[2022-09-06] MEDS ORDERED: VERAPAMIL HCL 180 MG TABCR PO SCH (09:00)
[2022-09-06] MEDS ORDERED: hydroCHLOROthiazide 25 MG TAB PO SCH (09:00)
[2022-09-06] MEDS: lisinopril 20 MG TAB PO SCH (09:50)
[2022-09-06] MEDS: buPROPion SR 150 MG TABCR PO SCH (09:50)
[2022-09-06] MEDS: METOPROLOL SUCC 50MG EXT REL TAB PO SCH (09:50)
[2022-09-06] MEDS: PANTOprazole 40 MG in SYRINGE 0 ML IV SCH (09:51)
[2022-09-06] MEDS: ALPRAZolam 0.5 MG TABLET PO PRN (09:54)
[2022-09-06] MEDS ORDERED: ASPIRIN 81 MG ECTAB PO SCH (10:00)
--- NOTE | 2022-09-06 11:25 | Cardiology Progress Note ---
Date of Service September 06, 2022 Assessment & Plan (1) Acute non-ST segment elevation myocardial infarction: (2) Hypertensive urgency: Plan Patient yesterday developed recurrent chest pain with elevated troponin. Echocardiogram reflective of posterior lateral hypokinesis with preserved LV function. Patient underwent diagnostic coronary angiography and subsequent coronary intervention of culprit lesion within the large first diagonal branch. Diffuse branch vessel disease noted with chronic total occlusion of the right coronary artery with collateral fill Recommendations: Patient stable for discharge to home Plan guideline directed optimal medical regimen and discussed with patient. Discontinue verapamil. Metoprolol succinate 50 mg twice per day Lisinopril 20 mg twice per day Resume prior HCT dosing 25 mg p.o. daily Amlodipine 5 mg p.o. every afternoon Nitroglycerin sublingually as needed Discontinue pravastatin switch to high intensity statin with rosuvastatin 20 mg daily Recommend off work 2 weeks or until seen by cardiology Cardiac rehab Patient has planned follow-up with cardiology: Dr. Denny Gonzalez, [address] [place] [address]. Request for records placed We will forward disc of cardiac imaging in a.m. Admission and Anticipated Discharge Date Admission Date: September 05, 2022 Subjective Patient was seen and examined, chart, medications, telemetry reviewed. Feels substantially better this morning no further chest pains or discomfort. Blood pressure better controlled Results of cardiac catheterization explained in detail to the patient and family Review of Systems Review of Systems: All systems reviewed & are unremarkable except as noted in Subjective Physical Exam Constitutional: WD/WN, vitals as above Eyes: PERRL, conjunctivae normal, anicteric sclerae ENMT: external ear and nose normal, oropharynx normal Neck: trachea midline, no thyromegaly Respiratory: normal respiratory effort, lungs clear to auscultation Cardiovascular: Rate/Rhythm: regular rate and regular rhythm Heart Sounds: normal S1 and normal S2; no gallop and no murmur Palpation: normal PMI Vessels: normal carotid upstroke and radial pulses present (Right radial access site healing well); no JVD and no carotid bruit Extremities: no edema Gastrointestinal (Abdomen): normal bowel sounds, soft, nontender, no hepatosplenomegaly Musculoskeletal: no cyanosis or clubbing, extremities motor strength 5/5 Skin: no rashes, warm and dry Neurologic: PERRL, EOMI, accommodation nl, no face palsy, no dysarthria Psychiatric: A+Ox3, euthymic affect Results & Data ([facility]) Vital Signs (Past 12 Hours) Vital Signs Temp Pulse Resp BP BP Pulse Ox O2 Del Method 09/06/22 11:20 36.7 C 67 16 159/92 H 96 Room Air 09/06/22 08:10 36.7 C 65 17 144/85 H 98 Room Air 09/06/22 04:28 36.6 C 67 16 139/81 96 Room Air Laboratory Results Laboratory Results - last 24 hr 09/05/22 09/05/22 09/05/22 06:34 14:41 14:41 WBC RBC Hgb Hct MCV MCH MCHC RDW Std Deviation RDW Coeff of Cheryl Plt Count MPV APTT 32.2 H PTT Ratio 1.2 Activ Coag Time Kaolin Sodium Potassium Chloride Carbon Dioxide Anion Gap BUN Creatinine Est Cr Clr Drug Dosing Est GFR ( Amer) Est GFR (Non-Af Amer) BUN/Creatinine Ratio Glucose Calcium Phosphorus Magnesium Troponin I High Sens 3067.3 H* D Vitamin B12 388 Folate 17.58 09/05/22 09/05/22 09/05/22 15:30 15:46 20:17 WBC RBC Hgb Hct MCV MCH MCHC RDW Std Deviation RDW Coeff of Cheryl Plt Count MPV APTT PTT Ratio Activ Coag Time Kaolin 149 H 215 H Sodium Potassium Chloride Carbon Dioxide Anion Gap BUN Creatinine Est Cr Clr Drug Dosing Est GFR ( Amer) Est GFR (Non-Af Amer) BUN/Creatinine Ratio Glucose Calcium Phosphorus Magnesium Troponin I High Sens 6209.0 H* D Vitamin B12 Folate 09/06/22 09/06/22 06:04 06:04 WBC 7.77 RBC 4.63 L Hgb 13.3 L Hct 39.7 L MCV 85.7 MCH 28.7 MCHC 33.5 RDW Std Deviation 42.8 RDW Coeff of Cheryl 13.8 Plt Count 260 MPV 9.8 APTT PTT Ratio Activ Coag Time Kaolin Sodium 138 Potassium 3.8 Chloride 104 Carbon Dioxide 23 Anion Gap 11 BUN 23 Creatinine 1.23 Est Cr Clr Drug Dosing 65.7 Est GFR ( Amer) 71.0 Est GFR (Non-Af Amer) 61.2 BUN/Creatinine Ratio 18.7 Glucose 99 Calcium 9.7 Phosphorus 2.3 L Magnesium 1.7 Troponin I High Sens Vitamin B12 Folate Diagnostic Findings Cardiac catheterization and coronary intervention 09/05/2022 Coronary angiography findings: LMT: Large-caliber vessel bifurcating into LAD and circumflex. Mild luminal irregularities. LAD: Large caliber and transapical vessel. Proximal segment with mild luminal irregularities. First diagonal is large in caliber. Proximal segment is 99% occluded and there is GERARDO I flow distally. There is staining suggestive of thrombus. Mid LAD has mild luminal irregularities. There is a medium caliber long and branching second diagonal with proximal 80% stenosis. Probably too sm all for PCI. The early distal LAD has an eccentric lesion of 50%. Then the LAD is without significant disease until it reaches the apex where there is a focal 80 to 90% stenosis. LCx: Medium caliber vessel traveling in the AV groove. Proximal segment with mild 50 to 60% stenosis. First major OM is medium caliber and branching. Has proximal 70 to 80% stenosis. The mid AV groove circumflex has no disease. It provides an atrial branch, too small posterior lateral branches and left to right collaterals to the right PDA. RCA: Large caliber and dominant vessel. Has a chronic total occlusion just after the ostium. There are some right to right collaterals and an RV marginal branch. The distal RCA has up to 99% stenosis and is diffusely diseased. The vessel bifurcates into the PDA and posterolateral branches. These fill better via left to right collateralization than they do via the right to right collateralization. PCI to diagonal: 0% residual post PCI No evidence of dissection or perforation post PCI GERARDO-3 flow post PCI The mid and distal vessel have mild scattered plaques and the distal vessel has several small branches. Summary: 1. Non-ST elevation [place] secondary to occlusion of a large caliber branching first diagonal. 2. Successful PCI to the first diagonal with implantation of a drug-eluting stent. 3. 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 In addition there is moderate to severe residual disease at the apex, second diagonal, and mild disease elsewhere. 4. Patient will be on dual antiplatelet therapy Echocardiogram 09/05/2022 Mild left hypertrophy with mild hypokinesis of the posterior lateral wall EF 55 to 60%, no significant valvular disease
--- NOTE | 2022-09-06 13:36 | Discharge Summary ---
Date of Service September 06, 2022 Admission HPI Per Admitting Provider 67-year-old male with PMH of HTN, HLD, anxiety, alcohol use disorder, history of testicular and prostate cancer presented to the ED 09/05 with complaint of waking up from sleep at 4:30 AM with " squeezing chest pain", kind of like indigestion but not similar to his indigestion history per him [patient has on and off indigestion per him], radiating to back, 8/10 in intensity, no associated diaphoresis or headache or dizziness or palpitation, minimally relieved with anti-gas meds and 2 baby aspirin taken at home but came right back in. In the ED patient got full dose aspirin and GI cocktail and famotidine with relief of chest pressure currently rated at 2/10. Patient denies any recent fever/flulike illness/cough/sore throat/belly pain/acute changes in his bowel or bladder habits. Patient reports having no rmal appetite. Reports lot of belching today. Patient denies smoking or using any recreational drugs. 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 Patient denies any history of stenting anywhere in the body for himself. Denies any DE or blood clot in self. Patient reports father expiring from heart disease at age 45, brother with history of testicular and prostate cancer, 1 sister expiring from NHL, another sister with NHL. Medications were reviewed with the patient, patient takes HCTZ 12.5 mg every morning, lisinopril 20 mg twice daily, verapamil 360 mg every morning, bupropion 150 mg twice daily, Xanax 1 mg twice daily as needed for anxiety, pravastatin 40 mg at bedtime. Plan of care discussed with the patient who voiced understanding. Admission Exam Per Admitting Provider GENERAL: Alert and oriented x3. NAD, on RA. HEENT: No pallor, no icterus. Pupils equal, round and reactive to light. Oral mucosa moist. NECK: No JVD, no neck masses. HEART: S1 and S2 heard. Regular rate and rhythm. No murmur, no gallop. RESPIRATORY SYSTEM: Normal AP diameter. No accessory muscle use. No wheezing, no crackles. ABDOMEN: Soft, bowel sounds present, nontender, no distention. CENTRAL NERVOUS SYSTEM: No facial droop. Speech is clear. Obeys simple commands. Moves extremities. EXTREMITIES: No edema, no erythema seen. Principal Diagnosis NSTEMI Discharge Exam GENERAL: Alert and oriented x3. NAD, on RA. HEENT: No pallor, no icterus. Pupils equal, round and reactive to light. Oral mucosa moist. NECK: No JVD, no neck masses. HEART: S1 and S2 heard. Regular rate and rhythm. No murmur, no gallop. RESPIRATORY SYSTEM: Normal AP diameter. No accessory muscle use. No wheezing, no crackles. ABDOMEN: Soft, bowel sounds present, nontender, no distention. CENTRAL NERVOUS SYSTEM: No facial droop. Speech is clear. Obeys simple commands. Moves extremities. EXTREMITIES: No edema, no erythema seen. Discharge Data Allergies Allergy/AdvReac Type Severity Reaction Status Date / Time No Known Allergies Allergy Unverified 09/05/22 13:02 Consultations 09/05/22 08:42 ED Decision to Admit Stat 09/05/22 09:04 Consult Cardiology Routine Procedures Performed Operation Date: 09/05/22 15:00 Actual Procedures s Cineradiography w/Routine Exam - Paul Magaña MD, PhD p Aspiration/PCI w/GILDA for Stemi - Paul Magaña MD, PhD s Cath, Coronaries ONLY (no LV) - Paul Magaña MD, PhD Ordered Studies 09/05/22 14:54 CL Cath Imgs for PACS use only Stat 09/05/22 16:40 CT head/brain wo con Stat Hospital Course (1) Chest pain: Plan 67 yo gentleman was managed for the following while in hospital: NSTEMI Patient comes in with working up from sleep at 4:30 AM with " squeezing chest pain" which he confuses with his indigestion but reports it is not similar to his past indigestion history. Patient's father from heart disease at age 45. Admitting troponin elevated at 175.2, which uptrended, admitting CXR and EKG with no acute findings. Other labs fairly wnl. ECHO w/ posterior lateral hypokines w/ preserved ejection fraction 55-60%; and Gr I diastolic dysfunction, and moderate concentric LVH. Pt had recurrence of chest pain later in the day of admission, Repeat EKG w/ no ST elevation; d/w cardio, HEART ALERT was called. S/p Cardiac cath and Stenting of lesion w/in the large first diagonal branch. Diffuse branch vessel disease noted with chronic total occlusion of the right coronary artery with collateral fill. Patient to continue with aspirin and Brilinta for at least 1 year and maintain follow-up with his cardiology. Patient aware. Patient's cardiac medications are optimized. Patient to take them accordingly. Patient to follow-up with PCP office for cardiac rehab referral. 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 Denies use of tobacco or other recreational drugs. Patient has been counseled and patient states that he will cut down his alcohol intake. Other chronic medical conditions: HTN, HLD, anxiety--> resume home meds as able [Home meds HCTZ 25 every morning, lisinopril 20 mg twice daily, verapamil 360 mg every morning, bupropion 150 mg twice daily, Xanax 1 mg twice daily as needed for anxiety, pravastatin 40 mg at bedtime per patient]. Cardiac medications have been optimized. New med rec upon discharge. Patient being discharged home with following instruction at the point of discharge: Follow-up with your primary care physician within a week time and likely you will need labs CBC/CMP/magnesium/phosphorus. Follow-up with your cardiology in 1 to 2 weeks upon discharge. For your chest pain, you were diagnosed with NSTEMI, you underwent heart cath and received 1 stent within the " large first diagonal branch" and diffuse branch vessel disease was noted with chronic total occlusion of the right coronary artery with collateral fill. Follow-up with cardiac rehab, coordinate w/ your pcp or cardiology office. Recommend off work 2 weeks or until seen by your cardiology. Your cardiac medications has been optimized, take them as prescribed. Take your medications as prescribed. Home Health Attestation I certify that this patient is under my care and that I, or a physicians acute care assistant working with me, had a face to-face encounter that meets the home health [id number] encounter requirements with this patient. The encounter with the patient was in whole, or in part, for the following medical condition, which is the primary reason for home health care (list medical condition): I certify that, based on my findings, the following services are medically necessary home health services: My clinical findings support the need for the above services because: Further, I certify that my clinical findings support that this patient is homebound (i.e. absences from home require considerable and taxing effort and are for medical reasons or yazidi services or infrequently or of short duration when for other reasons) because: Certification for Home Health Services: Based on the above findings, I certify that this patient is confined to the home and needs intermittent senior living care, physical therapy and/or speech therapy or continues to need occupational therapy. The patient is under my care, and I have initiated the establishment of the plan of care. This patient will be followed by a physician who will periodically review the plan of care. Total Time Total Time Spent Total Time Spent (In Minutes): 45 Discharge Plan Discharge Items Patient Disposition: Home - Self-Care Reason For Visit: CHEST PAIN Discharge Diagnosis: NSTEMI Activity: As commented below Non-emergency contact: Primary Care Provider Call non-emergency contact if: you have any medication questions, your symptoms worsen, your pain is worsening and your temperature is above 101 Follow-up/Referrals: Rodrigo Bravo DO [Primary Care Provider] - Diet: Heart Healthy Addtl Attending Provider Instructions: Follow-up with your primary care physician within a week time and likely you will need labs CBC/CMP/magnesium/phosphorus. Follow-up with your cardiology in 1 to 2 weeks upon discharge. For your chest pain, you were diagnosed with NSTEMI, you underwent heart cath and received 1 stent within the " large first diagonal branch" and diffuse branch vessel disease was noted with chronic total occlusion of the right coronary artery with collateral fill. Follow-up with cardiac rehab, coordinate w/ your pcp or cardiology office. Recommend off work 2 weeks or until seen by your cardiology. Your cardiac medications has been optimized, take them as prescribed. Take your medications as prescribed. Please make sure that you are able to get your medications today by calling your pharmacy before you leave the hospital so that your treatment continuity is not broken. Addtl Platform Builder Provider Instructions: ACTIVITY RECOMMENDATIONS: Excess manipulation of the wrist should be avoided for the next 24-48 hours. * No lifting over 2 pounds (approximately a 1/2 gallon of milk) with the utilized arm for 24 hours. * No strenuous activity such as bowling or tennis for 3 days. * Keep the site of the procedure covered with a bandage for 24 hours. *You may shower the day after the procedure. Do not take a tub bath or submerge the puncture site in water for the next 3 days. *Do not operate any motorized equipment for 3 days. SPECIAL CARE INSTRUCTIONS: The site may be slightly bruised and sore following your procedure. Should any of the following occur, contact the Dr. who performed your procedure. 1. Redness/inflammation, swelling, chills, or fever, or colored drainage at procedure site within 3-7 days after your procedure. 2. Coldness, discoloration, ongoing numbness, severe pain, or swelling. Expect mild tingling of hand and tenderness at the puncture site for up to three days. If this persists beyond three days, or other symptoms develop, notify the Dr. who performed your procedure. BLEEDING: If the procedure site on your wrist begins to bleed, do not panic 1. Place 1 or 2 fingers firmly just slightly above the insertion site to stop the bleeding. You may be able to feel your pulse as you hold pressure. 2. Lift your finger after 5 minutes to see if the bleeding has stopped. 3. Once the bleeding has stopped, gently wipe the wrist area clean with a bandage. * If the bleeding from your wrist does not stop after 10 minutes, or if there is a large amount of bleeding or spurting, call 911 (do not drive yourself to the hospital). SKIN IRRITATION: * You may experience some redness and/or swelling in the area where radiation was administered. If any skin irritation occurs, please contact your family physician. FOLLOW UP VISIT: Keep any scheduled doctor appointments. Pending Studies at Discharge: No Stand-Alone Forms: My [facility], Smoking Cessation Medications and DC Order Prescriptions: New Brilinta 90 mg Tablet 90 mg PO Q12H Qty: 60 0RF amlodipine [Norvasc] 5 mg Tablet 5 mg PO QPM Qty: 30 0RF metoprolol succinate 50 mg Tablet Extended Release 24 Hr 50 mg PO BID Qty: 60 0RF rosuvastatin [Crestor] 20 mg Tablet 20 mg PO QPM Qty: 30 0RF aspirin 81 mg Tablet,Delayed Release (Dr/Ec) 81 mg PO QAM Qty: 30 0RF nitroglycerin [Nitrostat] 0.4 mg Tablet, Sublingual 0.4 mg sublingual UD PRN (Reason: chest pain) Qty: 30 0RF Continued alprazolam [Xanax] 1 mg tablet 0.5 mg PO BID bupropion HCl 150 mg tablet sustained-release 12 hr 150 mg PO BID hydrochlorothiazide 25 mg tablet 25 mg PO DAILY lisinopril 20 mg tablet 20 mg BID Discontinued pravastatin 80 mg tablet 80 mg PO HS verapamil 360 mg capsule,ext rel. pellets 24 hr 360 mg PO DAILY Discharge Orders: Discharge Order (Routine); Ordered 09/06/22 Ordered By: Kendall James Admission Data Admit Date/Time: 09/05/22 09:08 Attending Provider: Kendall James Admit Provider: Kendall James Primary Care Provider: Rodrigo Bravo Other Providers: Kendall James ; Nestor Sparks
[2022-09-06] MEDS ORDERED: ROSUVASTATIN CALCIUM 20 MG TAB PO SCH (21:00)
[2022-09-06] MEDS ORDERED: amLODIPine BESYLATE 5 MG TAB PO SCH (21:00)
--- NOTE | 2022-09-06 22:21 | Electrocardiogram Report ---
Test Reason : Blood Pressure : / mmHG Vent. Rate : 075 BPM Atrial Rate : 075 BPM P-R Int : 168 ms QRS Dur : 092 ms QT Int : 398 ms P-R-T Axes : 048 009 002 degrees QTc Int : 444 ms Normal sinus rhythm Nonspecific ST and T wave abnormality Abnormal ECG No previous ECGs available Confirmed by Earl Dahl ([id number]) on 09/06/2022 10:20:31 PM Referred By: REFERRED SELF Confirmed By:Earl Dahl
--- NOTE | 2022-09-06 22:58 | Electrocardiogram Report ---
Test Reason : Blood Pressure : / mmHG Vent. Rate : 068 BPM Atrial Rate : 068 BPM P-R Int : 218 ms QRS Dur : 090 ms QT Int : 414 ms P-R-T Axes : -06 049 017 degrees QTc Int : 440 ms Sinus rhythm with 1st degree A-V block Nonspecific ST abnormality When compared with ECG of 05-SEP-2022 06:19, AL interval has increased Confirmed by Earl Dahl ([id number]) on 09/06/2022 10:58:08 PM Referred By: REFERRED SELF Confirmed By:Earl Dahl
--- NOTE | 2022-09-07 05:37 | Electrocardiogram Report ---
Test Reason : Blood Pressure : / mmHG Vent. Rate : 067 BPM Atrial Rate : 067 BPM P-R Int : 196 ms QRS Dur : 088 ms QT Int : 426 ms P-R-T Axes : -04 014 -06 degrees QTc Int : 450 ms Normal sinus rhythm Nonspecific ST abnormality Abnormal ECG When compared with ECG of 05-SEP-2022 13:47, No significant change was found Confirmed by Earl Dahl ([id number]) on 09/07/2022 5:37:04 AM Referred By: REFERRED SELF Confirmed By:Earl Dahl
--- NOTE | 2022-09-07 05:51 | Electrocardiogram Report ---
Test Reason : Blood Pressure : / mmHG Vent. Rate : 069 BPM Atrial Rate : 069 BPM P-R Int : 210 ms QRS Dur : 082 ms QT Int : 406 ms P-R-T Axes : 054 -01 -14 degrees QTc Int : 435 ms Sinus rhythm with 1st degree A-V block Nonspecific ST abnormality Abnormal ECG When compared with ECG of 05-SEP-2022 16:22, No significant change was found Confirmed by Earl Dahl ([id number]) on 09/07/2022 5:50:53 AM Referred By: REFERRED SELF Confirmed By:Earl Dahl
== END 2022-09-06 14:46 | disposition home or self-care (01) | DRG 247 ==
LOC: ED 06:09 → 4W 09:08
PROC: CLB.CCO (2022-09-05 15:00)